=== PATIENT | female | born 1960 | race Caucasian/White ===

== ENCOUNTER 2018-07-02 18:09 | Emergency (ER) | payer OTHER, SELFPAY ==
[2018-07-02 18:25] VITALS: BP 175/111; PULSE 93; RESP 18; TEMP 36.3; O2SAT 95; BMI 32.4
--- NOTE | 2018-07-02 18:37 | DI.RAD.S_ITS ---
PROCEDURE: XR CHEST 1V INDICATIONS: chest pain TECHNIQUE: One view of the chest was acquired. COMPARISON: None. FINDINGS: Surgical changes and devices: None. Lungs and pleura: Lungs are clear. No pleural effusions or pneumothorax. Mediastinum: Mediastinal contours appear normal. Heart size is normal. Bones and chest wall: No suspicious bony lesions. Overlying soft tissues appear unremarkable. IMPRESSION: Normal chest. Dictated by: Vicki Saldana M.D. on 07/02/2018 at 19:19 Approved by: Vicki Saldana M.D. on 07/02/2018 at 19:19
--- NOTE | 2018-07-02 18:46 | ED_ITS ---
HPI - Chest Pain General Chief Complaint: Chest Pain Stated Complaint: flu symptoms,chest pain, not sleeping,crying Time Seen by Provider: 07/02/18 18:45 Source: patient Mode of arrival: ambulatory Limitations: no limitations History of Present Illness HPI narrative: the patient has been ill for 3 weeks. She has had cough, headaches when the illness started. She denies ear pain but has occasional dizziness. She has no sinus pressure no sore throat. She has neck pain from coughing. Her cough is generally nonproductive. She does not have COPD. She smokes marijuana, not tobacco. She has had central sternal chest pain, seemingly with cough. She has no cardiac history. She is not diabetic. She has been ill for 3 weeks, seemingly no better. She has abdominal pain, and decreased oral intake. She has no nausea vomiting. She denies urinary problems. Related Data Home Medications Medication Instructions Recorded Confirmed hydrochlorothiazide [Microzide] 12.5 mg PO QDAY #0 cap 02/21/13 lisinopril 10 mg PO QDAY #0 tab 02/21/13 Allergies Allergy/AdvReac Type Severity Reaction Status Date / Time No Known Drug Allergies Allergy Verified 07/02/18 18:25 Review of Systems Review of Systems ROS Unobtainable: All systems reviewed & are unremarkable except as noted in HPI and below Constitutional Reports chills, Denies fever(s), Reports headache(s), Reports lethargy and Reports weakness Eyes Denies eye discharge, Denies irritation and Denies loss of vision ENT Ears, Nose, Mouth, and Throat: Denies change in voice, Reports vertigo, Reports dizziness, Reports headache(s), Reports neck pain and Denies sore throat Cardiovascular Reports chest pain ( Along the lower sternum), Denies irregular heart rhythm, Denies lightheadedness, Denies palpitations, Denies dyspnea, Denies dyspnea on exertion and Denies orthopnea Respiratory Reports cough, Denies dyspnea, Denies dyspnea on exertion and Denies wheezing Gastrointestinal Gastrointestinal: Reports abdominal pain, Denies change in bowel habits, Denies diarrhea, Denies nausea and Denies vomiting Genitourinary Denies dysuria Musculoskeletal Reports back pain, Reports neck pain and Denies numbness Integumentary/Breasts Denies pruritus, Denies erythema, Denies rash and Denies wounds Neurologic Denies confusion, Reports vertigo, Reports dizziness, Reports headache(s), Denies loss of vision, Denies numbness and Reports weakness Psychiatric Denies anxiety, Denies confusion and Denies depression Endocrine Denies palpitations Allergic/Immunologic Denies wheezing PFSH Medical History Hypertension (Acute) No chronic problems (Acute) Surgical History No history of previous surgery (Acute) Social History Smoking Status: Never smoker substance use type: marijuana Social History Smoking Status: Never smoker substance use type: marijuana Exam Initial Vital Signs Initial Vital Signs: Vital Signs Temperature 97.4 F L 07/02/18 18:25 Pulse Rate 93 H 07/02/18 18:25 Respiratory Rate 18 07/02/18 18:25 Blood Pressure 175/111 H 07/02/18 18:25 Pulse Oximetry 95 07/02/18 18:25 Const General: cooperative, well developed and anxious Nutritional Appearance: well nourished Orientation: alert, awake, oriented x3 and not confused HENMT Head: normocephalic, atraumatic and other ( [place] evaluations negative) Ears: external ears normal and TM's normal bilaterally Nose: external nose normal and No nasal discharge Face and sinus: sinuses nontender, face symmetric, no sinus tenderness and No dry mucous membranes Mouth: oral mucosae normal and moist mucous membranes Teeth and gingiva: dentition normal Throat: tonsils normal and uvula midline Eyes General: appearance normal, both eyes and all related structures Eyelids: eyelids normal Conjunctivae: conjunctivae normal Sclera: sclerae normal Pupils: PERRL EOM: EOM intact bilaterally Neck Neck: normal visual inspection, trachea midline, No lymphadenopathy, No midline deformity and No JVD Lymphatic: No lymphedema Chest Chest: normal inspection of the chest, No crepitus and tenderness ( at the lower sternum) Resp Effort & Inspection: normal respiratory effort, able to speak in complete sentences, no respiratory distress and no use of accessory muscles Auscultation: clear to auscultation bilaterally, no rales, no rhonchi and no wheezes Cardio Rate: regular rate Rhythm: regular rhythm Heart Sounds: no click, no gallops, no murmurs and no rubs Pulses: normal peripheral pulses GI Inspection: non-distended Palpation: soft, no hepatosplenomegaly, No pulsatile mass and tender ( mild tenderness along the diaphragm, no guarding or rebound.) Auscultation: normal bowel sounds Back/Spine/Pelvis Back: No CVA tenderness Skin General: no rashes or lesions noted, No jaundice and No petechiae Neuro General: alert, oriented x3, gait normal and no focal motor deficits Speech: speech normal Extrem General: full ROM, no clubbing, cyanosis or edema, no pedal edema and no calf tenderness Course Orders Ordered: ED Orders 07/02/18 18:19 EKG-12 Lead Stat 07/02/18 18:35 Complete Blood Count AUTO DIFF Stat Comprehensive Metabolic Panel Stat FLU A and B [Influenza A and B by PCR Rapid] Stat Lipase Stat Partial Thromboplastin Time Stat Prothrombin Time INR Stat Troponin & CK Cardiac Panel Stat 07/02/18 18:37 XR chest 1V Stat Vital Signs - 8 hr 07/02/18 18:25 Temperature 97.4 F L Pulse Rate 93 H Respiratory Rate 18 Blood Pressure 175/111 H Pulse Oximetry 95 MDM - Chest Pain Medical Records Data Attestation: I reviewed the patient's medical records. Lab Data Attestation: I reviewed the patient's lab results. Result diagrams: 07/02/18 18:35 07/02/18 18:35 Lab Results 07/02/18 07/02/18 07/02/18 Range/Units 18:35 18:35 18:35 WBC 4.7 (4.5-11.0) X10^3/uL RBC 4.59 (4.0-5.2) X10^6/uL Hgb 14.7 (12.0-16.0) g/dL Hct 42.6 (36-46) % MCV 92.8 (80-100) fL MCH 31.9 (26-34) PG MCHC 34.4 (30-36) % RDW 12.9 (11.6-14.8) % Plt Count 231 (150-400) X10^3/uL Neut % (Auto) 37.8 L (50-75) % Lymph % (Auto) 43.7 H (25-40) % [place] % (Auto) 11.7 (3-14) % Eos % (Auto) 5.5 H (2-4) % Baso % (Auto) 1.3 (0-2) % Neut # (Auto) 1800 (3098-0829) /uL Lymph # (Auto) 2100 (7101-1109) /uL [place] # (Auto) 600 (0-900) /uL Eos # (Auto) 300 (0-450) /uL Baso # (Auto) 100 (0-100) /uL PT 10.8 (10.1-12.7) SECONDS INR 0.9 (0.9-1.3) APTT 29 (26.4-36.2) SECONDS Sodium 138 (137-145) mmol/L Potassium 3.8 (3.4-5.1) mmol/L Chloride 102 (98-107) mmol/L Carbon Dioxide 24 (22-32) mmol/L BUN 16 (7-17) mg/dL Creatinine 0.80 (0.52-1.04) mg/dL Estimated GFR > 60.0 (>60) mL/min BUN/Creatinine Ratio 20.0 (6-22) Glucose 138 H (70-100) mg/dL Calcium 8.6 (8.4-10.2) mg/dL Total Bilirubin 0.5 (0.2-1.3) mg/dL AST 27 (14-36) IU/L ALT 42 (9-52) IU/L Alkaline Phosphatase 64 (38-126) U/L Total Creatine Kinase 67 (30-135) U/L CK-MB (CK-2) TNP CK-MB (CK-2) Rel Index TNP Troponin I < 0.012 (0.01-0.034) ng/mL Total Protein 7.6 (6.3-8.2) g/dL Albumin 4.4 (3.5-5.0) g/dL Globulin 3.2 (1.7-4.1) g/dL Albumin/Globulin Ratio 1.4 (1.0-2.8) Lipase 30 (23-300) U/L Influenza A & B (PCR) (Negative) 07/02/18 Range/Units 18:35 WBC (4.5-11.0) X10^3/uL RBC (4.0-5.2) X10^6/uL Hgb (12.0-16.0) g/dL Hct (36-46) % MCV (80-100) fL MCH (26-34) PG MCHC (30-36) % RDW (11.6-14.8) % Plt Count (150-400) X10^3/uL Neut % (Auto) (50-75) % Lymph % (Auto) (25-40) % [place] % (Auto) (3-14) % Eos % (Auto) (2-4) % Baso % (Auto) (0-2) % Neut # (Auto) (4631-1872) /uL Lymph # (Auto) (0689-1730) /uL [place] # (Auto) (0-900) /uL Eos # (Auto) (0-450) /uL Baso # (Auto) (0-100) /uL PT (10.1-12.7) SECONDS INR (0.9-1.3) APTT (26.4-36.2) SECONDS Sodium (137-145) mmol/L Potassium (3.4-5.1) mmol/L Chloride (98-107) mmol/L Carbon Dioxide (22-32) mmol/L BUN (7-17) mg/dL Creatinine (0.52-1.04) mg/dL Estimated GFR (>60) mL/min BUN/Creatinine Ratio (6-22) Glucose (70-100) mg/dL Calcium (8.4-10.2) mg/dL Total Bilirubin (0.2-1.3) mg/dL AST (14-36) IU/L ALT (9-52) IU/L Alkaline Phosphatase (38-126) U/L Total Creatine Kinase (30-135) U/L CK-MB (CK-2) CK-MB (CK-2) Rel Index Troponin I (0.01-0.034) ng/mL Total Protein (6.3-8.2) g/dL Albumin (3.5-5.0) g/dL Globulin (1.7-4.1) g/dL Albumin/Globulin Ratio (1.0-2.8) Lipase (23-300) U/L Influenza A & B (PCR) Positive, type a A (Negative) Imaging Data Chest x-ray: Radiologist's impression: [address] [address] XRay Report Signed Patient: Hayley Barfield#: [id number] : 1960Acct:[id number] Age/Sex: 57 / FDate of Service: 07/02/18 Loc: ED Accession Number: [id number] Procedure: XR chest 1V Ordering Provider: Yaron Landin D.O. PROCEDURE: XR CHEST 1V INDICATIONS: chest pain TECHNIQUE: One view of the chest was acquired. COMPARISON: None. FINDINGS: Surgical changes and devices: None. Lungs and pleura: Lungs are clear. No pleural effusions or pneumothorax. Mediastinum: Mediastinal contours appear normal. Heart size is normal. Bones and chest wall: No suspicious bony lesions. Overlying soft tissues appear unremarkable. IMPRESSION: Normal chest. Dictated by: Vicki Saldana M.D. on 07/02/2018 at 19:19 Approved by: Vicki Saldana M.D. on 07/02/2018 at 19:19 ECG Data Attestation: I personally reviewed and interpreted this ECG as follows: ( Normal sinus rhythm rate 86. nonspecific ST-T changes. No ectopy.) Discharge Plan Departure Patient Disposition: Home Clinical Impression: Influenza Discharge Date/Time: 07/02/18 20:01 Interventions: ED Discharge Assessment Last Done: 07/02/18 20:02 Instructions: DI for Influenza -- Adult Activity Restrictions/Additional Instructions: Tylenol or Advil as needed for body aches /fever. Robitussin DM if necessary for cough suppression. Rest, drink plenty of fluids. Walk and exercise regularly. Recheck with her doctor in 1-2 weeks if not improving. Return here if worse. Prescriptions: No Action lisinopril 10 MG tablet 10 mg PO QDAY Qty: 0 RF: 0 hydrochlorothiazide [Microzide] 12.5 MG capsule 12.5 mg PO QDAY Qty: 0 RF: 0
[2018-07-02 18:58] LABS: Add Manual Diff / Slide Review NO; Basophils Absolute Auto 100 /uL (0-100); Basophils Percent Auto 1.3 % (0-2); Eosinophils Absolute Auto 300 /uL (0-450); Eosinophils Percent Auto 5.5 % (2-4); Hematocrit 42.6 % (36-46); Hemoglobin 14.7 g/dL (12.0-16.0); Lymphocytes Absolute Auto 2100 /uL (1100-4500); Lymphocytes Percent Auto 43.7 % (25-40); Mean Corpuscular HGB Conc 34.4 % (30-36); Mean Corpuscular Hemoglobin 31.9 PG (26-34); Mean Corpuscular Volume 92.8 fL (80-100); Monocytes Absolute Auto 600 /uL (0-900); Monocytes Percent Auto 11.7 % (3-14); Neutrophils Absolute Auto 1800 /uL (1500-7000); Neutrophils Percent Auto 37.8 % (50-75); Platelet Count 231 X10^3/uL (150-400); Red Blood Cell Count 4.59 X10^6/uL (4.0-5.2); Red Cell Distribution Width 12.9 % (11.6-14.8); White Blood Cell Count 4.7 X10^3/uL (4.5-11.0)
[2018-07-02 18:59] LABS: INR 0.9 (0.9-1.3); Prothrombin Time 10.8 SECONDS (10.1-12.7)
[2018-07-02 19:02] LABS: PTT Partial Thromboplastin Tim 29 SECONDS (26.4-36.2)
[2018-07-02 19:04] LABS: Alanine Aminotransferase 42 IU/L (9-52); Albumin 4.4 g/dL (3.5-5.0); Albumin Globulin Ratio 1.4 (1.0-2.8); Alkaline Phosphatase 64 U/L (38-126); Aspartate Aminotransferase 27 IU/L (14-36); Bilirubin Total 0.5 mg/dL (0.2-1.3); Blood Urea Nitrogen 16 mg/dL (7-17); Calcium 8.6 mg/dL (8.4-10.2); Carbon Dioxide 24 mmol/L (22-32); Chloride 102 mmol/L (98-107); Creatine Kinase 67 U/L (30-135); Estimated Glomerular Filt Rate > 60.0 mL/min (>60); Globulin 3.2 g/dL (1.7-4.1); Glucose 138 mg/dL (70-100); HEMOLYSIS < 15 (0-50); Lipase 30 U/L (23-300); Potassium 3.8 mmol/L (3.4-5.1); Sodium 138 mmol/L (137-145); Total Protein 7.6 g/dL (6.3-8.2)
[2018-07-02 19:15] LABS: Troponin I < 0.012 ng/mL (0.01-0.034)
[2018-07-02 19:40] VITALS: BP 131/90; PULSE 84; RESP 21; O2SAT 93
[2018-07-02 20:02] VITALS: TEMP 37.1
== END 2018-07-02 20:01 | disposition home or self-care (01) ==
PROVIDERS: Emergency Medicine; Emergency Provider Emergency Medicine
DX: J11.1 Influenza due to unidentified influenza virus with other respiratory manifestations (principal)
CPT/HCPCS: 36591; 71045; 80053; 82550; 83690; 84484; 85025; 85610; 85730; 87400; 93005; 99283; 99285

== ENCOUNTER → 2018-08-30 16:06 | Outpatient (CLI) | payer OTHER, SELFPAY ==
[2018-08-30 16:55] LABS: Influenza A and B by PCR Rapid Negative (Negative)
== END ==
PROVIDERS: Visit Provider Physician Assistant
DX: R68.89 Other general symptoms and signs (principal); Z20.828 Contact with and (suspected) exposure to other viral communicable diseases
CPT/HCPCS: 87400

== ENCOUNTER → 2018-08-30 17:09 | Outpatient (CLI) | payer OTHER, SELFPAY ==
--- NOTE | 2018-08-30 17:13 | DI.RAD.S_ITS ---
PROCEDURE: XR CHEST 2V INDICATIONS: cough TECHNIQUE: 2 views of the chest were acquired. COMPARISON: [facility], CR, XR CHEST 1V, 07/02/2018, 18:54. FINDINGS: Surgical changes and devices: None. Lungs and pleura: There are increased interstitial markings are identified diffusely throughout the lungs without a focal area of consolidation. No effusion or pneumothorax is evident. Mediastinum: Mediastinal contours are normal. Heart size is normal. Bones and chest wall: No suspicious bony abnormalities. Soft tissues appear unremarkable. IMPRESSION: Prominent interstitial markings are likely within normal limits and may be related to differences in inspiratory effort. However, this appearance may be seen in the setting of bronchitis or atypical pneumonia. No typical consolidative pneumonia is evident. Dictated by: Brice Blanco M.D. on 08/30/2018 at 16:40 Approved by: Brice Blanco M.D. on 08/30/2018 at 16:41
== END ==
PROVIDERS: Visit Provider Physician Assistant
DX: R05 Cough (principal); R68.89 Other general symptoms and signs; Z20.828 Contact with and (suspected) exposure to other viral communicable diseases
CPT/HCPCS: 71046; 87400

== ENCOUNTER → 2019-01-18 13:25 | Outpatient (CLI) | payer OTHER, SELFPAY | PROVIDERS: Visit Provider Physician Assistant | DX: L02.91 Cutaneous abscess, unspecified (principal) | CPT/HCPCS: 87070; 87205 ==

== ENCOUNTER → 2019-11-17 08:41 | Outpatient (CLI) | payer OTHER, SELFPAY ==
--- NOTE | 2019-11-17 08:42 | DI.RAD.S_ITS ---
PROCEDURE: XR FINGER RT MIN 2V INDICATIONS: pain TECHNIQUE: AP hand, 2 views of the 4th finger(s) acquired. COMPARISON: None. FINDINGS: Bones: No fractures or dislocations. No suspicious bony lesions. Soft tissues: No suspicious soft tissue calcifications. No radiopaque foreign body seen. Apparent swelling of the proximal aspect of the 4th digit. IMPRESSION: No acute osseous abnormality. No radiopaque foreign body seen. Consider ultrasound if concern for occult foreign body. Dictated by: Danny Bragg M.D. on 11/17/2019 at 9:08 Approved by: Danny Bragg M.D. on 11/17/2019 at 9:09
== END ==
PROVIDERS: Referring Provider Physician Assistant; Visit Provider Physician Assistant
DX: L08.9 Local infection of the skin and subcutaneous tissue, unspecified (principal); M79.644 Pain in right finger(s)
CPT/HCPCS: 73140

== ENCOUNTER 2021-07-10 14:23 | Emergency (ER) | payer OTHER, SELFPAY ==
[2021-07-10] VITALS (8 sets, daily range): BP systolic 178–225; BP diastolic 106–125; PULSE 72–94; RESP 16–23; TEMP 36.6; O2SAT 94–98; BMI 32.3
--- NOTE | 2021-07-10 17:18 | PC.NURSE ---
Out to reassess patient after being notified by registration. asking for a new ice pack for back, given. when asked if there was any fall or trauma, pt stated no however she has been incontinent of urine which is not normal for her. Lumbar XR ordered while patient waiting to be seen.
--- NOTE | 2021-07-10 17:20 | DI.RAD.S_ITS ---
PROCEDURE: XR LUMBAR SPINE 2-3V INDICATIONS: Back pain with urinary incontinence TECHNIQUE: 3 views of the lumbar spine were acquired. COMPARISON: None. FINDINGS: Bones: 5 [id number] vertebrae are present. There is normal bony alignment. No vertebral body compression fractures. No suspicious bony lesions. Disc space narrowing and hypertrophic facet joints noted in the lower lumbar spine Soft tissues: Overlying bowel gas pattern is normal. No suspicious soft tissue calcifications. IMPRESSION: Degenerative disc disease and arthropathy in the lower lumbar spine without fracture or malalignment Approved by: Timothy Ramos M.D. on 07/10/2021 at 17:43
--- NOTE | 2021-07-10 20:44 | ED.BACK ---
HPI - Back Pain/Injury General Chief Complaint: Back Pain/Injury Stated Complaint: Back pain Time Seen by Provider: 07/10/21 21:20 Source: patient History of Present Illness HPI Narrative: Patient is a 60-year-old female who has a history of hypertension for for hyperlipidemia, chronic back pain presenting today with acute worsening right-sided back pain with numbness and tingling down her right leg. She said she set the car with her sister driving to [facility]. Pain got significantly worse. She has not taken anything for it except Tylenol. When she touches her sacrum she feels like she has to urinate. When she was crying she even urinated some. She has no saddle anesthesia. No changes in bowel habits. She is noted to be extremely hypertensive here in the emergency department. She has quite a lot of stress in her life taking care of her sister and her mother. She is extremely tearful upon questioning also seems to be in severe pain. Denies any chest pain or shortness of breath. No fevers or chills. Related Data Home Medications Medication Instructions Recorded Confirmed blood pressure med PO 01/18/19 03/20/20 bupropion HCl [Wellbutrin SR] PO 01/18/19 03/20/20 atorvastatin 40 mg tablet 40 mg PO tab 03/20/20 03/20/20 buspirone 10 mg tablet 10 mg PO tab 03/20/20 03/20/20 losartan 100 1 tab PO tab 03/20/20 03/20/20 mg-hydrochlorothiazide 25 mg tablet metoprolol succinate 25 mg mg PO 03/20/20 03/20/20 tablet,extended release 24 hr Previous Rx's Medication Instructions Recorded diclofenac sodium 1 % topical gel 4 gram TOP QID #450 gram 03/20/20 hydrocodone 5 mg-acetaminophen 325 1 tab PO Q6H PRN #10 tab 07/11/21 mg tablet methocarbamol 750 mg tablet 750 mg PO Q8H PRN #14 tab 07/11/21 Allergies Allergy/AdvReac Type Severity Reaction Status Date / Time cephalexin [From Keflex] Allergy Intermediate rash, hives Verified 07/10/21 14:54 sulfamethoxazole Allergy Intermediate rash, hives Verified 07/10/21 14:54 [From Bactrim] trimethoprim [From Bactrim] Allergy Intermediate rash, hives Verified 07/10/21 14:54 Review of Systems Review of Systems Narrative: GENERAL: Denies chills, fatigue, malaise, fever, sweats, travel HEENT: Denies sinus pain, ear pain, sore throat, difficulty swallowing, neck pain RESPIRATORY: Denies dyspnea, cough, wheezing, hemoptysis, sputum. CARDIOVASCULAR: Denies chest pain, palpitations, orthopnea, edema GASTROINTESTINAL: Denies nausea, vomiting, abdominal pain, diarrhea, constipation, melena. : Denies dysuria, frequency, incontinence, hematuria, urinary retention, flank pain. MUSCULOSKELETAL: See HPI SKIN: No rash, no erythema, no pruritus NEUROLOGIC: Denies weakness, dizziness, headache, numbness, change in speech, confusion PSYCHIATRIC: No concerning psychosocial issues. 12 point review of systems is negative except for those stated above and HPI Patient History Medical History (Updated 07/11/21 @ 02:47 by Latasha Abraham DO) Hypertension No chronic problems Shingles Surgical History (Updated 07/02/18 @ 19:41 by Sav Ly MD) No history of previous surgery Social History (Updated 07/02/18 @ 19:41 by Sav Ly MD) Smoking Status: Never smoker substance use type: marijuana Smoking Status: Never smoker alcohol intake frequency: holidays/special occasions only Substance Use Type: marijuana Exam Initial Vital Signs Initial Vital Signs: Vital Signs Temperature 98 F 07/10/21 14:49 Pulse Rate 94 H 07/10/21 14:49 Respiratory Rate 16 07/10/21 14:49 Blood Pressure 225/125 H 07/10/21 14:49 Pulse Oximetry 98 07/10/21 14:49 GENERAL: Tearful 60-year-old female appears in pain HEENT: Head atraumatic,EOMI, pupils reactive, face symmetric, [moist] mucous membranes CARDIOVASCULAR: Regular rate and rhythm without murmurs, rubs or gallops. RESPIRATORY: Breath sounds equal bilaterally, no wheezes rales or rhonchi. ABDOMEN: Soft, nontender. Normoactive bowel sounds all 4 quadrants. No guarding or rebound. BACK: Some midline tenderness in lumbar spine and sacral area. Also right buttock pain right flank pain overall very tender all across her lower back. EXTREMITIES: Normal range of motion, no clubbing or edema. Neurovascularly intact NEUROLOGICAL: Alert and oriented x4.Normal gait and speech. Sensation in lower extremities intact SKIN: Warm, dry, no laceration, no petechiae, no rashes or lesions. Course Orders Ordered: ED Orders 07/10/21 20:30 Complete Blood Count AUTO DIFF Stat Comprehensive Metabolic Panel Stat Lipase Stat Troponin & CK Cardiac Panel Stat 07/10/21 20:45 EKG-12 Lead Stat 07/11/21 00:55 CT angio chest abdomen pelvis Stat Discontinued Medications Hydrocodone Bitart/Acetaminophen (Hydrocodone/Acet 5/325 Prepack) 1 bottle MISC SEEINSTR ONE Stop: 07/11/21 02:51 Last Admin: 07/11/21 02:59 Dose: 1 bottle Documented by: [email or web address].[email or web address] Hydromorphone HCl (Hydromorphone 0.5 Mg Inj) 0.5 mg IV NOW ONE Stop: 07/10/21 21:45 Last Admin: 07/10/21 21:53 Dose: 0.5 mg Documented by: [email or web address].[email or web address] Hydromorphone HCl (Hydromorphone 1 Mg Inj) 1 mg IV NOW ONE Stop: 07/11/21 00:56 Last Admin: 07/11/21 01:13 Dose: 1 mg Documented by: KENA Sodium Chloride (Normal Saline 0.9%) 1,000 mls @ 150 mls/hr IV CONT CHRISTIANO Last Admin: 07/10/21 21:32 Dose: 150 mls/hr Documented by: [email or web address] Ketorolac Tromethamine (Ketorolac 30 Mg/Ml Vial) 15 mg IV NOW ONE Stop: 07/10/21 21:45 Last Admin: 07/10/21 21:53 Dose: 15 mg Documented by: MESERETARRPhill Lorazepam (Lorazepam 2 Mg/Ml Inj) 0.5 mg IV NOW ONE Stop: 07/11/21 00:56 Last Admin: 07/11/21 01:12 Dose: 0.5 mg Documented by: KENA Vital Signs Vital signs: Vital Signs - 8 hr 07/10/21 20:23 07/10/21 21:41 07/10/21 22:00 Pulse Rate 78 75 72 Respiratory Rate 23 Blood Pressure 223/106 H Pulse Oximetry 97 97 95 07/10/21 22:30 07/10/21 23:00 07/10/21 23:30 Pulse Rate 78 78 75 Respiratory Rate 17 18 18 Blood Pressure Pulse Oximetry 94 97 94 07/11/21 00:00 07/11/21 00:30 07/11/21 01:00 Pulse Rate 73 84 85 Respiratory Rate 18 24 13 Blood Pressure Pulse Oximetry 97 96 97 07/11/21 01:20 07/11/21 01:30 07/11/21 01:31 Pulse Rate 88 86 86 Respiratory Rate 20 18 19 Blood Pressure 198/95 H 173/87 H Pulse Oximetry 98 92 92 07/11/21 02:00 07/11/21 02:01 07/11/21 02:30 Pulse Rate 79 76 70 Respiratory Rate 19 18 19 Blood Pressure 155/87 H Pulse Oximetry 91 92 92 07/11/21 02:31 07/11/21 02:49 07/11/21 02:51 Pulse Rate 69 75 76 Respiratory Rate 18 17 20 Blood Pressure 155/88 H 181/115 H 165/100 H Pulse Oximetry 93 98 98 07/11/21 03:00 07/11/21 03:01 07/11/21 03:14 Pulse Rate 70 74 Respiratory Rate 20 20 Blood Pressure 162/84 H 165/74 H Pulse Oximetry 95 94 MDM - Back Pain/Injury Lab Data Result diagrams: 07/10/21 20:30 07/10/21 20:30 Labs: Lab Results 07/10/21 07/10/21 Range/Units 20:30 20:30 WBC 9.9 (4.5-11.0) X10^3/uL RBC 5.03 (4.0-5.2) X10^6/uL Hgb 15.3 (12.0-16.0) g/dL Hct 46.2 H (36-46) % MCV 91.9 (80-100) fL MCH 30.5 (26-34) PG MCHC 33.2 (30-36) % RDW 13.1 (11.6-14.8) % Plt Count 298 (150-400) X10^3/uL Neut % (Auto) 63.6 (50-75) % Lymph % (Auto) 24.9 L (25-40) % [place] % (Auto) 7.7 (3-14) % Eos % (Auto) 3.4 (2-4) % Baso % (Auto) 0.4 (0-2) % Neut # (Auto) 6300 (7140-8860) /uL Lymph # (Auto) 2500 (9873-4237) /uL [place] # (Auto) 800 (0-900) /uL Eos # (Auto) 300 (0-450) /uL Baso # (Auto) 0 (0-100) /uL Sodium 139 (137-145) mmol/L Potassium 4.0 (3.4-5.1) mmol/L Chloride 103 (98-107) mmol/L Carbon Dioxide 29 (22-32) mmol/L BUN 13 (7-17) mg/dL Creatinine 0.76 (0.52-1.04) mg/dL Estimated GFR > 60.0 (>60) mL/min BUN/Creatinine Ratio 17.1 (6-22) Glucose 94 (70-100) mg/dL Calcium 9.7 (8.4-10.2) mg/dL Total Bilirubin 0.7 (0.2-1.3) mg/dL AST 37 H (14-36) IU/L ALT 47 H (<35) IU/L Alkaline Phosphatase 67 (38-126) U/L Total Creatine Kinase 58 (30-135) U/L CK-MB (CK-2) TNP CK-MB (CK-2) Rel Index TNP Troponin I < 0.012 (0.01-0.034) ng/mL Total Protein 8.5 H (6.3-8.2) g/dL Albumin 4.9 (3.5-5.0) g/dL Globulin 3.6 (1.7-4.1) g/dL Albumin/Globulin Ratio 1.4 (1.0-2.8) Lipase 32 (23-300) U/L Imaging Data Extremity x-ray #1: Radiologist's Impression: PROCEDURE:? XR LUMBAR SPINE 2-3V ? INDICATIONS:? Back pain with urinary incontinence ? TECHNIQUE:? 3 views of the lumbar spine were acquired.? ? COMPARISON:? None. ? FINDINGS:? ? Bones:? 5 [id number] vertebrae are present.? There is normal bony alignment.? No vertebral body compression fractures.? No suspicious bony lesions.? Disc space narrowing and hypertrophic facet joints noted in the lower lumbar spine ? Soft tissues:? Overlying bowel gas pattern is normal.? No suspicious soft tissue calcifications.? ? ? IMPRESSION:? ? Degenerative disc disease and arthropathy in the lower lumbar spine without fracture or malalignment ? ? ? Approved by: Timothy Ramos M.D. on 07/10/2021 at 17:43? CT angio: Radiologist's Impression: PROCEDURE:? CT ANGIO CHEST ABDOMEN PELVIS ? INDICATIONS:? severe back pain with hypertension ? TECHNIQUE:? Precontrast 5 mm thick sections acquired from the lung apices to the iliac crests.? After the administration of intravenous contrast, 2.5 mm thick sections again acquired from the lung apices to the iliac crests.? Maximum intensity projection (MIP) oblique sagittal and coronal reformats were then acquired.? For radiation dose reduction, the following was used:? automated exposure control.? ? COMPARISON:? None. ? FINDINGS:? Image quality:? Excellent.? ? AORTA and its attachments:? Thoracic and abdominal aorta are of normal caliber without aneurysm or dissection.? Minimal plaque.? Classic three-vessel arch anatomy.? Great vessel origins are widely patent.? There is normal variant anatomy in which the common hepatic, left gastric, and splenic arteries all arises independent vessels off the aorta, as opposed to arising from a common celiac trunk.? SMA and WHITLEY and bilateral renal arteries are widely patent.? Bilateral iliacs are widely patent. ? CHEST:? Lungs and pleura:? No acute airspace opacities.? No pleural effusions or pneumothorax.? Central and peripheral airways are patent and normal in caliber.? No acute pulmonary emboli.? ? Mediastinum:? Heart size is normal.? No pericardial effusion.? No mediastinal or hilar adenopathy by size criteria.? Central pulmonary arteries are normal in size.? Esophagus is normal in caliber.? No hiatal hernias.? ? Bones and chest wall:? No axillary adenopathy by size criteria.? Thyroid gland is unremarkable as visualized.? No suspicious bony lesions.? No vertebral body compression fractures.? ? ? ABDOMEN:? Vasculature:? Celiac trunk and mesenteric arteries are patent.? Renal arteries are also patent.? ? Solid organs:? Hepatomegaly, moderate diffuse hepatic steatosis.? No hepatic masses.? Gallbladder is unremarkable.? Biliary system is non dilated.? Pancreas enhances normally. ?Spleen is normal in size and enhancement.? No adrenal nodules.? Both kidneys are normal in size and enhancement, without hydronephrosis.? ? Peritoneum and bowel:? No free fluid or air.? Bowel loops are normal in caliber and wall thickness.? ? Nodes and vessels:? No retroperitoneal or mesenteric adenopathy by size criteria.? Inferior vena cava is normal in morphology.? ? Miscellaneous:? No ventral hernias.? ? ? PELVIS:? Genitourinary:? Bladder wall thickness is normal.? ? Miscellaneous:? No inguinal hernias or adenopathy.? No ventral hernias.? IUD.? ? Bones:? No suspicious bony lesions.? No vertebral body compression fractures.? ? ? IMPRESSION:? ? 1. Unremarkable aorta and its attachments.? No dissection or aneurysm. ? 2. Incidental note made of normal variant anatomy in which the common hepatic artery, left gastric artery, and splenic artery all arises independently off the aorta, as opposed to from a celiac trunk. ? 3. Hepatomegaly, moderate diffuse hepatic steatosis. ? 4. No evidence of acute abdominal process. ? Dictated by: Hammad Xavier M.D. on 07/11/2021 at 1:29 ? ? Approved by: Hammad Xavier M.D. on 07/11/2021 at 1:37 ? ECG Data Interpretation: Normal sinus rhythm rate 74 MI interval [address] changes or T-wave inversions MDM Narrative Medical decision making narrative: Patient remains tearful but ambulatory to the restroom. She remained hypertensive. She has no sign of end-organ damage however with back pain worried about dissection. She also some urinary incontinence but no saddle anesthesia MRI is not available at this time. CT angio does not show any abnormality or dissection. After dilaudid in Ativan she is overall much better. She feels ready and able to go home. Discharge Plan Departure Patient Disposition: Home Clinical Impression: Acute exacerbation of chronic low back pain Instructions: DI for Back Pain With Sciatica Activity Restrictions/Additional Instructions: *You have been diagnosed with back pain with sciatic *What to do: At this time light activity is encouraged like some light walking. No strenuous activity no sitting for long periods of time no heavy lifting. you may require physical therapy and/or outpatient MRI. Please discuss this with his primary care provider *Continue to take medications as directed--> [facility] 600 mg every 6 hours if needed for [id number]-sc-hmpigvzo pain [place] 1 tablet every 6 hours if needed for severe pain Methocarbamol 750 mg is every 8 hours if needed for muscle spasm *Follow up with your primary care provider in 2-3 days or call [phone] *Return to ER if you should have increased pain, leg weakness, fever, loss of urine or any new, worsening or concerning symptoms CONTROLLED SUBSTANCE DISCHARGE (Narcotoic/benzodiazepine/Flexeril/Phenergan) 1. You have been prescribed narcotic medications, it does have acetaminophen/Tylenol/paracetamol in it, DO NOT TAKE MORE THAN 4,00mg in 24 hours of Tylenol. TRAMADOL DOES NOT CONTAIN TYLENOL 2. Please understand that we cannot provide further refills of narcotics, benzodiazepines or controlled substances through the ED and her pain management will need to be through your provider. 3. While on these medications you cannot drive or operate heavy machinery. 4. You cannot sign legal documents or perform any duties such as this. 5. As long as you're taking opiate pain medications he should also be taking a stool softener such as Colace, Dulcolax, MiraLAX or prune juice, to help avoid constipation. Prescriptions: New hydrocodone-acetaminophen 5-325 mg tablet 1 tab PO Q6H PRN (Reason: pain) Qty: 10 0RF methocarbamol 750 mg tablet 750 mg PO Q8H PRN (Reason: muscle spasm) Qty: 14 0RF No Action bupropion HCl PO 0RF blood pressure med PO 0RF losartan-hydrochlorothiazide 100-25 mg tablet 1 tab PO 0RF buspirone 10 mg tablet 10 mg PO 0RF metoprolol succinate 25 mg tablet extended release 24 hr PO 0RF atorvastatin 40 mg tablet 40 mg PO 0RF diclofenac sodium 1 % gel 4 gram TOP QID Qty: 450 0RF Rx Instructions: apply to left flank/back Referrals: Miscellaneous,Doctor, MD [Primary Care Provider] -
[2021-07-10 21:01] LABS: Add Manual Diff / Slide Review NO; Basophils Absolute Auto 0 /uL (0-100); Basophils Percent Auto 0.4 % (0-2); Eosinophils Absolute Auto 300 /uL (0-450); Eosinophils Percent Auto 3.4 % (2-4); Hematocrit 46.2 % (36-46); Hemoglobin 15.3 g/dL (12.0-16.0); Lymphocytes Absolute Auto 2500 /uL (1100-4500); Lymphocytes Percent Auto 24.9 % (25-40); Mean Corpuscular HGB Conc 33.2 % (30-36); Mean Corpuscular Hemoglobin 30.5 PG (26-34); Mean Corpuscular Volume 91.9 fL (80-100); Monocytes Absolute Auto 800 /uL (0-900); Monocytes Percent Auto 7.7 % (3-14); Neutrophils Absolute Auto 6300 /uL (1500-7000); Neutrophils Percent Auto 63.6 % (50-75); Platelet Count 298 X10^3/uL (150-400); Red Blood Cell Count 5.03 X10^6/uL (4.0-5.2); Red Cell Distribution Width 13.1 % (11.6-14.8); White Blood Cell Count 9.9 X10^3/uL (4.5-11.0)
[2021-07-10 21:03] LABS: Alanine Aminotransferase 47 IU/L (<35); Albumin 4.9 g/dL (3.5-5.0); Albumin Globulin Ratio 1.4 (1.0-2.8); Alkaline Phosphatase 67 U/L (38-126); Aspartate Aminotransferase 37 IU/L (14-36); BUN Creatinine Ratio 17.1 (6-22); Bilirubin Total 0.7 mg/dL (0.2-1.3); Blood Urea Nitrogen 13 mg/dL (7-17); Calcium 9.7 mg/dL (8.4-10.2); Carbon Dioxide 29 mmol/L (22-32); Chloride 103 mmol/L (98-107); Creatine Kinase 58 U/L (30-135); Estimated Glomerular Filt Rate > 60.0 mL/min (>60); Globulin 3.6 g/dL (1.7-4.1); Glucose 94 mg/dL (70-100); HEMOLYSIS 21 (0-50); Lipase 32 U/L (23-300); Sodium 139 mmol/L (137-145); Total Protein 8.5 g/dL (6.3-8.2)
[2021-07-10 21:14] LABS: Troponin I < 0.012 ng/mL (0.01-0.034)
[2021-07-10] MEDS: SODIUM CHLORIDE 0.9% 1,000 ML 150 ML IV (21:32)
[2021-07-10] MEDS: KETOROLAC 30 MG/ML VIAL 15 MG IV (21:53)
[2021-07-10] MEDS: HYDROMORPHONE 0.5 MG INJ IV (21:53)
[2021-07-11] VITALS (15 sets, daily range): BP systolic 155–198; BP diastolic 74–115; PULSE 69–88; RESP 13–24; O2SAT 91–98
--- NOTE | 2021-07-11 00:55 | DI.CT.S_ITS ---
PROCEDURE: CT ANGIO CHEST ABDOMEN PELVIS INDICATIONS: severe back pain with hypertension TECHNIQUE: Precontrast 5 mm thick sections acquired from the lung apices to the iliac crests. After the administration of intravenous contrast, 2.5 mm thick sections again acquired from the lung apices to the iliac crests. Maximum intensity projection (MIP) oblique sagittal and coronal reformats were then acquired. For radiation dose reduction, the following was used: automated exposure control. COMPARISON: None. FINDINGS: Image quality: Excellent. AORTA and its attachments: Thoracic and abdominal aorta are of normal caliber without aneurysm or dissection. Minimal plaque. Classic three-vessel arch anatomy. Great vessel origins are widely patent. There is normal variant anatomy in which the common hepatic, left gastric, and splenic arteries all arises independent vessels off the aorta, as opposed to arising from a common celiac trunk. SMA and WHITLEY and bilateral renal arteries are widely patent. Bilateral iliacs are widely patent. CHEST: Lungs and pleura: No acute airspace opacities. No pleural effusions or pneumothorax. Central and peripheral airways are patent and normal in caliber. No acute pulmonary emboli. Mediastinum: Heart size is normal. No pericardial effusion. No mediastinal or hilar adenopathy by size criteria. Central pulmonary arteries are normal in size. Esophagus is normal in caliber. No hiatal hernias. Bones and chest wall: No axillary adenopathy by size criteria. Thyroid gland is unremarkable as visualized. No suspicious bony lesions. No vertebral body compression fractures. ABDOMEN: Vasculature: Celiac trunk and mesenteric arteries are patent. Renal arteries are also patent. Solid organs: Hepatomegaly, moderate diffuse hepatic steatosis. No hepatic masses. Gallbladder is unremarkable. Biliary system is non dilated. Pancreas enhances normally. Spleen is normal in size and enhancement. No adrenal nodules. Both kidneys are normal in size and enhancement, without hydronephrosis. Peritoneum and bowel: No free fluid or air. Bowel loops are normal in caliber and wall thickness. Nodes and vessels: No retroperitoneal or mesenteric adenopathy by size criteria. Inferior vena cava is normal in morphology. Miscellaneous: No ventral hernias. PELVIS: Genitourinary: Bladder wall thickness is normal. Miscellaneous: No inguinal hernias or adenopathy. No ventral hernias. IUD. Bones: No suspicious bony lesions. No vertebral body compression fractures. IMPRESSION: 1. Unremarkable aorta and its attachments. No dissection or aneurysm. 2. Incidental note made of normal variant anatomy in which the common hepatic artery, left gastric artery, and splenic artery all arises independently off the aorta, as opposed to from a celiac trunk. 3. Hepatomegaly, moderate diffuse hepatic steatosis. 4. No evidence of acute abdominal process. Dictated by: Hammad Xavier M.D. on 07/11/2021 at 1:29 Approved by: Hammad Xavier M.D. on 07/11/2021 at 1:37
[2021-07-11] MEDS: LORazepam 2 MG/ML INJ 0.5 MG IV (01:12)
[2021-07-11] MEDS: HYDROMORPHONE 1 MG INJ IV (01:13)
[2021-07-11] MEDS: HYDROCODONE/ACET 5/325 PREPACK 1 BOTTLE MISC (02:59)
== END 2021-07-11 03:15 | disposition home or self-care (01) ==
PROVIDERS: Emergency Provider Emergency Medicine
DX: M54.50 Low back pain, unspecified (principal); G89.29 Other chronic pain
CPT/HCPCS: 36415; 51798; 71275; 72100; 74174; 80053; 82550; 83690; 84484; 85025; 93005; 96374; 96375; 96376; 99284; J1170; J1885; J2060; Q9967

== ENCOUNTER 2021-11-29 22:20 | Emergency (ER) | payer OTHER, SELFPAY ==
[2021-11-29] VITALS (15 sets, daily range): BP systolic 170–178; BP diastolic 86–107; PULSE 91–105; RESP 13–33; TEMP 36.5; O2SAT 93–98
--- NOTE | 2021-11-29 22:42 | DI.RAD.S_ITS ---
PROCEDURE: XR FEMUR LT MIN 2V INDICATIONS: fall down 40 ft mar TECHNIQUE: For views of the femur were acquired. COMPARISON: None. FINDINGS: Bones: No fractures or dislocations. No suspicious bony lesions. Soft tissues: No suspicious soft tissue calcifications or masses. IMPRESSION: No definite osseous trauma found. Dictated by: Seth Calderon M.D. on 11/29/2021 at 23:11 Approved by: Seth Calderon M.D. on 11/29/2021 at 23:12
--- NOTE | 2021-11-29 22:43 | DI.CT.S_ITS ---
PROCEDURE: CT HEAD/BRAIN WO CON INDICATIONS: fall down 40 ft mar TECHNIQUE: Noncontrast 4.5 mm thick angled axial sections acquired from the foramen magnum to the vertex, with coronal and sagittal reformats. For radiation dose reduction, the following was used: automated exposure control, adjustment of mA and/or kV according to patient size. COMPARISON: None. FINDINGS: Image quality: Excellent. CSF spaces: Basal cisterns are patent. No extra-axial fluid collections. Ventricles are normal in size and shape. Brain: No midline shift. No intracranial masses or hemorrhage. May-white matter interface is normal. Skull and face: Calvarium and visualized facial bones are intact, without suspicious lesions. Sinuses: Visualized sinuses and mastoids are clear. IMPRESSION: No trauma seen. Dictated by: Seth Calderon M.D. on 11/29/2021 at 23:12 Approved by: Seth Calderon M.D. on 11/29/2021 at 23:13
--- NOTE | 2021-11-29 22:43 | DI.CT.S_ITS ---
PROCEDURE: CT CHEST ABD PEL W CON INDICATIONS: fall down 40 ft mar TECHNIQUE: After the administration of intravenous contrast, 5 mm thick sections acquired from the lung apices to the symphysis. 5 mm coronal and sagittal reformats were performed, with additional 7 mm MIP reformats through the lungs. For radiation dose reduction, the following was used: automated exposure control, adjustment of mA and/or kV according to patient size. COMPARISON: None. FINDINGS: Image quality: Excellent. CHEST: Lungs and pleura: No acute airspace opacities. No pleural effusions or pneumothorax. Central and peripheral airways appear patent and normal in caliber. Mediastinum: Heart size is normal. No pericardial effusion. No mediastinal or hilar adenopathy by size criteria. Thoracic aorta and central pulmonary arteries are normal in size. Esophagus is normal in caliber. No hiatal hernia. Chest wall: No axillary or supraclavicular adenopathy by size criteria. Thyroid gland appears normal where well seen . ABDOMEN: Solid organs: Liver is normal in size and enhancement. Gallbladder appears normal . Biliary system is non dilated. Pancreas enhances normally. Spleen is normal in size and enhancement. No adrenal nodules. Kidneys demonstrate normal size and enhancement, without hydronephrosis. Peritoneum and bowel: Bowel loops demonstrate normal wall thickness and caliber. No free fluid or air. Nodes and vessels: No retroperitoneal or mesenteric adenopathy by size criteria. Aorta and inferior vena cava are normal in size. Miscellaneous: No ventral hernias. PELVIS: Genitourinary: Bladder wall thickness is normal. Miscellaneous: No inguinal hernias or adenopathy. Bones: No suspicious bony lesions. No vertebral body compression fractures. IMPRESSION: No trauma found. Dictated by: Seth Calderon M.D. on 11/29/2021 at 23:37 Approved by: Seth Calderon M.D. on 11/29/2021 at 23:39
--- NOTE | 2021-11-29 22:43 | DI.CT.S_ITS ---
PROCEDURE: CT CERVICAL SPINE WO CON INDICATIONS: fall down 40 ft mar TECHNIQUE: Noncontrast 3 mm thick sections acquired from the skull base to the T4 level. Sagittal and coronal reformats were then constructed. For radiation dose reduction, the following was used: automated exposure control, adjustment of mA and/or kV according to patient size. COMPARISON: None. FINDINGS: Image quality: Excellent. Bones: No fractures or dislocations. Visualized superior ribs are intact. Soft tissues: Prevertebral soft tissues are normal in thickness. No paravertebral hematomas. No apical pneumothoraces. IMPRESSION: No trauma found. Dictated by: Seth Calderon M.D. on 11/29/2021 at 23:31 Approved by: Seth Calderon M.D. on 11/29/2021 at 23:31
[2021-11-29 22:48] LABS: Add Manual Diff / Slide Review NO; Basophils Absolute Auto 0 /uL (0-100); Basophils Percent Auto 0.1 % (0-2); Eosinophils Absolute Auto 200 /uL (0-450); Eosinophils Percent Auto 1.6 % (2-4); Hematocrit 39.7 % (36-46); Hemoglobin 13.3 g/dL (12.0-16.0); Lymphocytes Absolute Auto 1500 /uL (1100-4500); Mean Corpuscular HGB Conc 33.6 % (30-36); Mean Corpuscular Hemoglobin 31.3 PG (26-34); Mean Corpuscular Volume 93.3 fL (80-100); Monocytes Absolute Auto 1200 /uL (0-900); Monocytes Percent Auto 7.8 % (3-14); Neutrophils Absolute Auto 12000 /uL (1500-7000); Neutrophils Percent Auto 80.5 % (50-75); Platelet Count 267 X10^3/uL (150-400); Red Blood Cell Count 4.26 X10^6/uL (4.0-5.2); White Blood Cell Count 14.9 X10^3/uL (4.5-11.0)
[2021-11-29 22:51] LABS: Prothrombin Time 11.6 SECONDS (10.1-12.7)
[2021-11-29 22:56] LABS: Alanine Aminotransferase 35 IU/L (<35); Albumin 4.5 g/dL (3.5-5.0); Albumin Globulin Ratio 1.6 (1.0-2.8); Alkaline Phosphatase 66 U/L (38-126); Aspartate Aminotransferase 47 IU/L (14-36); BUN Creatinine Ratio 21.1 (6-22); Bilirubin Total 0.6 mg/dL (0.2-1.3); Blood Urea Nitrogen 16 mg/dL (7-17); Calcium 8.5 mg/dL (8.4-10.2); Carbon Dioxide 22 mmol/L (22-32); Chloride 106 mmol/L (98-107); Estimated Glomerular Filt Rate > 60 mL/min (>60); Globulin 2.8 g/dL (1.7-4.1); Glucose 107 mg/dL (70-100); HEMOLYSIS < 15 (0-50); Lipase 271 U/L (23-300); Magnesium 1.8 mg/dL (1.6-2.3); Potassium 3.5 mmol/L (3.4-5.1); Sodium 142 mmol/L (137-145); Total Protein 7.3 g/dL (6.3-8.2)
[2021-11-29] MEDS: HYDROMORPHONE 0.5 MG INJ IV (23:12)
[2021-11-29] MEDS: SODIUM CHLORIDE 0.9% 1,000 ML 150 ML IV (23:13)
[2021-11-29] MEDS: ONDANSETRON 4 MG/2 ML INJ IV (23:13)
[2021-11-29 23:15] LABS: COVID19 -Nasal RAPID Negative (Negative)
[2021-11-29 23:40] LABS: Appearance Urine UA CLEAR; Bilirubin Urine UA NEGATIVE (NEGATIVE); Color Urine UA YELLOW; Glucose Urine UA NEGATIVE (Negative); Ketones Urine UA TRACE (NEGATIVE); Leukocyte Esterase Urine UA NEGATIVE (NEGATIVE); Nitrite Urine UA NEGATIVE (Negative); Occult Blood Urine UA 2+ (Negative); Protein Urine UA 1+ (Negative); Specific Gravity Urine UA 1.015 (1.000-1.035); Urobilinogen Urine UA 0.2 E.U./dL (0.2)
[2021-11-29 23:51] LABS: RBC Urine 0-1/HPF (0-5/HPF); WBC Urine 0-1/HPF (0-5/HPF)
[2021-11-29 23:52] LABS: Bacteria Urine None Seen; Culture Indicated Urine Cult Not Indicated; Hyaline Casts Urine 0-1/LPF; Mucus Urine 1+ (Negative); Squamous Epithelial Cell Urine 1-5 /HPF (0-5/HPF)
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
[2021-11-30] VITALS (34 sets, daily range): BP systolic 131–159; BP diastolic 72–86; PULSE 92–101; RESP 11–27; O2SAT 92–98
[2021-11-30] MEDS: HYDROMORPHONE 0.5 MG INJ IV (01:19)
[2021-11-30] MEDS: ONDANSETRON 4 MG ODT PREPACK 1 BOTTLE MISC (02:35)
[2021-11-30] MEDS: KETOROLAC 30 MG/ML VIAL 15 MG IV (02:35)
[2021-11-30] MEDS: OXYCODONE/APAP 5/325 PREPACK 1 BOTTLE MISC (02:35)
[2021-11-30] MEDS: OXYCODONE/ACETAMINOPHEN 5/325 TABLET 2 TAB PO (02:35)
[2021-11-30] MEDS: TET,DIPH,PERTUSS(ACELL),VAC/PF 0.5 ML SYRINGE IM (02:36)
--- NOTE | 2021-11-30 03:13 | PC.NURSE ---
Pt gave consent at 2220 on 11/29 to have her clothes cut off and thrown away
== END 2021-11-30 03:14 | disposition home or self-care (01) ==
PROVIDERS: Emergency Provider Emergency Medicine
DX: S06.0X0A Concussion without loss of consciousness, initial encounter (principal); S71.112A Laceration without foreign body, left thigh, initial encounter; T14.8XXA Other injury of unspecified body region, initial encounter; W17.81XA Fall down embankment (hill), initial encounter; Z23 Encounter for immunization; Z20.822 Contact with and (suspected) exposure to COVID-19
CPT/HCPCS: 12004; 70450; 71260; 72125; 73552; 74177; 80053; 81001; 83690; 83735; 85025; 85610; 87635; 90471; 93005; 93010; 96361; 96374; 96375; 96376; 99285; 99291; C9803; 90715; J1170; J1885; J2405; Q9967

== ENCOUNTER → 2021-12-10 11:17 | Outpatient (CLI) | payer OTHER, SELFPAY | PROVIDERS: Visit Provider Physician Assistant | DX: L24.A9 Irritant contact dermatitis due friction or contact with other specified body fluids (principal) | CPT/HCPCS: 87070; 87075; 87077; 87147; 87185; 87186; 87205 ==